=== PATIENT | male | born 1940 | race Caucasian/White ===

== ENCOUNTER 2019-06-11 01:45 | Inpatient (IN) ==
[2019-06-11] MEDS ORDERED: Morphine Sulfate 2 MG/ML SYRINGE IVP ONE (01:56)
[2019-06-11 02:26] LABS: Basophils % 0.4 %; Eosinophils % 0.2 %; Hematocrit 46.4 % (37.5-50.1); Immature Granulocytes % 0.4 % (0-4); Lymphocytes # 2.2 K/mcL (0.6-4.6); Mean Corpuscular HGB Conc 32.3 g/dL (31.6-35.5); Mean Corpuscular Volume 89.6 fL (83.0-100.0); Monocytes # 0.6 K/mcL (0.0-1.3); Monocytes % 4.9 %; Neutrophils # 8.3 K/mcL (1.6-8.9); Platelet Count 150 K/mcL (140-400); Red Blood Count 5.18 M/mcL (4.19-5.50); Red Cell Distribution Width 13.1 % (11.5-14.5); Segmented Neutrophils % 74.1 %; White Blood Count 11.2 K/mcL (4.3-11.1)
[2019-06-11 02:27] LABS: Prothrombin Time 11.1 Seconds (9.4-12.1)
[2019-06-11 02:29] LABS: Activated Partial Thrombo Time 26.5 Seconds (26.0-36.0)
[2019-06-11 02:37] LABS: Alanine Aminotransferase 14 Units/L (7-52); Albumin 4.7 g/dL (3.5-5.7); Alkaline Phosphatase 79 Units/L (34-104); Aspartate Amino Transferase 22 Units/L (13-39); BUN/Creatinine Ratio 19 (6-26); Bilirubin,Direct 0.1 mg/dL (0.0-0.2); Bilirubin,Indirect 0.6 mg/dL (0.0-1.0); Bilirubin,Total 0.7 mg/dL (0.3-1.0); Blood Urea Nitrogen 24 mg/dL (8-23); Calcium 10.1 mg/dL (8.6-10.3); Carbon Dioxide 27 mEq/L (23-29); Chloride 102 mEq/L (98-107); Globulin 2.3 g/dL (2.4-3.5); Glucose 195 mg/dL (70-105); Lipase 62 Units/L (11-82); Osmolality,Calculated 297 (280-300); Potassium 5.2 mEq/L (3.5-5.1); Sodium 139 mEq/L (136-145); Troponin I < 0.03 ng/mL (< 0.04); eGFR For African Americans > 60 (> 60); eGFR For Non-African Americans 56 (> 60)
[2019-06-11] MEDS ORDERED: Ondansetron 4 MG/2 ML VIAL IVP ONE (03:09)
[2019-06-11] MEDS ORDERED: 0.9 % Sodium Chloride 1,000 ML IVC ONE (03:10)
[2019-06-11 03:20] LABS: Bilirubin,Urine Negative (Negative); Blood,Urine Negative (Negative); Clarity,Urine Clear (Clear); Color,Urine Yellow (Yellow); Glucose,Urine (UA) Normal (Normal); Ketones,Urine Trace mg/dL (Negative); Leukocyte Esterase,Urine Negative (Negative); Nitrite,Urine Negative (Negative); Protein,Urine Trace mg/dL (Neg-Trace); Specific Gravity,Urine 1.027 (1.010-1.025); Urobilinogen,Urine Normal (Normal)
[2019-06-11] MEDS: 0.9 % Sodium Chloride 1,000 ML IVC SCH ×3 (06:34→23:02)
[2019-06-11] MEDS ORDERED: Naloxone 0.4 MG/ML INJ IVP PRN (07:00)
[2019-06-11] MEDS ORDERED: Ondansetron 4 MG/2 ML VIAL IVP PRN (07:00)
[2019-06-11] MEDS ORDERED: D5% in Water 1,000 ML IVC PRN (07:01)
[2019-06-11] MEDS ORDERED: *HR* Dextrose 50 % in Water (Syg) 50 ML SYRINGE IVP PRN (07:01)
[2019-06-11] MEDS ORDERED: Dextrose Gel 15 GM/37.5 ML TUBE PO PRN ×2 (07:01)
[2019-06-11] MEDS ORDERED: Morphine Sulfate 2 MG/ML SYRINGE IVP PRN (07:39)
[2019-06-11] MEDS ORDERED: *HR* Metoprolol 5 MG/5 ML VIAL IVP PRN (07:39)
[2019-06-11] MEDS ORDERED: *HR* Promethazine 25 MG/ML VIAL IVP PRN (09:27)
[2019-06-11] MEDS: Insulin LISPRO 300 UNITS/3 ML VIAL SQ SCH ×2 (11:54→17:16)
[2019-06-11] MEDS: *HR* Heparin 5,000 UNIT/ML VIAL SQ SCH ×2 (13:17→20:29)
[2019-06-12] MEDS: Insulin LISPRO 300 UNITS/3 ML VIAL SQ SCH ×4 (00:30→17:17)
[2019-06-12 02:07] LABS: Basophils % 0.2 %; Eosinophils # 0.1 K/mcL (0.0-0.6); Eosinophils % 0.7 %; Hematocrit 40.1 % (37.5-50.1); Hemoglobin 12.7 g/dL (12.9-16.9); Immature Granulocytes % 0.3 % (0-4); Immature Platelets 3.2 % (1.1-6.1); Lymphocytes # 2.6 K/mcL (0.6-4.6); Lymphocytes % 29.2 %; Mean Corpuscular HGB Conc 31.7 g/dL (31.6-35.5); Mean Corpuscular Hemoglobin 28.8 pg (28.0-33.3); Mean Corpuscular Volume 90.9 fL (83.0-100.0); Monocytes # 0.8 K/mcL (0.0-1.3); Monocytes % 8.6 %; Neutrophils # 5.4 K/mcL (1.6-8.9); Platelet Count 138 K/mcL (140-400); Red Blood Count 4.41 M/mcL (4.19-5.50); Red Cell Distribution Width 13.2 % (11.5-14.5); White Blood Count 8.8 K/mcL (4.3-11.1)
[2019-06-12 02:24] LABS: BUN/Creatinine Ratio 21 (6-26); Blood Urea Nitrogen 24 mg/dL (8-23); Calcium 8.2 mg/dL (8.6-10.3); Carbon Dioxide 27 mEq/L (23-29); Chloride 109 mEq/L (98-107); Glucose 107 mg/dL (70-105); Osmolality,Calculated 297 (280-300); Potassium 4.2 mEq/L (3.5-5.1); Sodium 141 mEq/L (136-145); eGFR For African Americans > 60 (> 60); eGFR For Non-African Americans > 60 (> 60)
[2019-06-12] MEDS: *HR* Heparin 5,000 UNIT/ML VIAL SQ SCH ×3 (05:05→23:50)
[2019-06-12] MEDS: 0.9 % Sodium Chloride 1,000 ML IVC SCH ×3 (06:45→17:16)
[2019-06-12 07:05] LABS: Estimated Average Glucose 131 mg/dl
[2019-06-12] MEDS ORDERED: *HR* FentaNYL (PF) 100 MCG/2 ML VIAL ONE (10:48)
[2019-06-12] MEDS ORDERED: Dexamethasone 4 MG/ML VIAL ONE (10:50)
[2019-06-12] MEDS ORDERED: Ondansetron 4 MG/2 ML VIAL ONE (10:50)
[2019-06-12] MEDS ORDERED: Lidocaine -MPF 2% 2 ML VIAL ONE (10:50)
[2019-06-12] MEDS ORDERED: *HR* Propofol 200 MG/20 ML VIAL IVP ONE (10:50)
[2019-06-12] MEDS ORDERED: *HR* Rocuronium Bromide 50 MG/5 ML VIAL ONE (10:50)
[2019-06-12] MEDS ORDERED: Lidocaine -MPF 4% 5 ML AMPUL ONE (10:53)
[2019-06-12] MEDS ORDERED: Ondansetron 4 MG/2 ML VIAL IVP ONE (12:13)
[2019-06-12] MEDS ORDERED: *HR* HYDROmorphone PF 0.5 MG/0.5 ML SYRINGE IVP PRN (12:13)
[2019-06-12] MEDS ORDERED: *HR* OxyCODONE Immed Rel 5 MG TABLET PO PRN (12:13)
[2019-06-12] MEDS ORDERED: *HR* Succinylcholine 200 MG/10 ML VIAL IVP ONE ×2 (12:54→13:44)
[2019-06-12] MEDS ORDERED: *HR* Vasopressin 20 UNIT/ML VIAL ONE (12:55)
[2019-06-12] MEDS ORDERED: Acetaminophen IV 1,000 MG/100 ML INFUS..BTL ONE (13:11)
[2019-06-12] MEDS ORDERED: Clindamycin 900 MG/50 ML 900 MG/50 ML IV.SOLN IVPB ONE ×2 (13:19→13:20)
[2019-06-12] MEDS ORDERED: Bupivacaine/EPI 1:200k 0.5%PF 30 ML VIAL ONE (13:20)
[2019-06-12] MEDS ORDERED: *HR* PHENYLEPHRINE 1,000 MCG/10 ML SYRINGE IVP ONE (13:47)
[2019-06-12] MEDS ORDERED: *HR* HYDROMORPHONE 2 MG/ML VIAL ONE (13:53)
[2019-06-12] MEDS ORDERED: *HR* Labetalol 20 MG/4 ML SYRINGE IVP ONE (14:41)
[2019-06-12] MEDS ORDERED: Naloxone 0.4 MG/ML INJ IVP PRN (15:54)
[2019-06-12] MEDS ORDERED: D5% in Water 1,000 ML IVC PRN (15:54)
[2019-06-12] MEDS ORDERED: Vancomycin (wt based) 1,000 MG VIAL IVPB SCH (15:54)
[2019-06-12] MEDS ORDERED: Dextrose Gel 15 GM/37.5 ML TUBE PO PRN ×2 (15:54)
[2019-06-12] MEDS ORDERED: *HR* Promethazine 25 MG/ML VIAL IVP PRN (15:54)
[2019-06-12] MEDS: MetroNIDAZOLE 500 MG/100 ML 500 MG/100 ML BAG IVPB SCH (16:11)
[2019-06-12] MEDS: Morphine Sulfate 2 MG/ML SYRINGE IVP PRN (18:06)
[2019-06-12] MEDS: Acetaminophen IV 1,000 MG/100 ML INFUS..BTL IVPB SCH (19:50)
[2019-06-13] MEDS: Acetaminophen IV 1,000 MG/100 ML INFUS..BTL IVPB SCH ×4 (01:18→20:32)
[2019-06-13] MEDS: MetroNIDAZOLE 500 MG/100 ML 500 MG/100 ML BAG IVPB SCH ×2 (01:20→07:25)
[2019-06-13] MEDS: Ondansetron 4 MG/2 ML VIAL IVP PRN ×2 (01:20→23:22)
[2019-06-13] MEDS: Morphine Sulfate 2 MG/ML SYRINGE IVP PRN ×5 (01:20→23:21)
[2019-06-13 01:22] LABS: Basophils % 0.1 %; Mean Corpuscular HGB Conc 31.9 g/dL (31.6-35.5); Red Cell Distribution Width 13.2 % (11.5-14.5)
[2019-06-13 01:23] LABS: Hematocrit 38.2 % (37.5-50.1); Hemoglobin 12.2 g/dL (12.9-16.9); Immature Granulocytes % 0.4 % (0-4); Immature Platelets 2.7 % (1.1-6.1); Lymphocytes # 1.9 K/mcL (0.6-4.6); Lymphocytes % 19.8 %; Mean Corpuscular Hemoglobin 28.8 pg (28.0-33.3); Mean Corpuscular Volume 90.1 fL (83.0-100.0); Monocytes # 0.6 K/mcL (0.0-1.3); Monocytes % 5.8 %; Platelet Count 137 K/mcL (140-400); Red Blood Count 4.24 M/mcL (4.19-5.50); Segmented Neutrophils % 73.9 %; White Blood Count 9.7 K/mcL (4.3-11.1)
[2019-06-13 01:40] LABS: BUN/Creatinine Ratio 22 (6-26); Blood Urea Nitrogen 24 mg/dL (8-23); Calcium 7.9 mg/dL (8.6-10.3); Carbon Dioxide 24 mEq/L (23-29); Chloride 109 mEq/L (98-107); Glucose 156 mg/dL (70-105); Neutrophils # 7.2 K/mcL (1.6-8.9); Osmolality,Calculated 299 (280-300); Sodium 141 mEq/L (136-145); eGFR For African Americans > 60 (> 60); eGFR For Non-African Americans > 60 (> 60)
[2019-06-13 01:41] LABS: Platelet Estimate Normal (Normal)
[2019-06-13] MEDS: *HR* Heparin 5,000 UNIT/ML VIAL SQ SCH ×3 (06:18→23:20)
[2019-06-13] MEDS: 0.9 % Sodium Chloride 1,000 ML IVC SCH ×2 (06:19→16:32)
[2019-06-13] MEDS: Insulin LISPRO 300 UNITS/3 ML VIAL SQ SCH ×4 (06:51→17:28)
[2019-06-13] MEDS: Pantoprazole 40 MG VIAL IVP SCH (09:10)
[2019-06-14] MEDS: Insulin LISPRO 300 UNITS/3 ML VIAL SQ SCH ×4 (01:00→17:10)
[2019-06-14] MEDS: 0.9 % Sodium Chloride 1,000 ML IVC SCH ×3 (01:05→17:46)
[2019-06-14] MEDS: Acetaminophen IV 1,000 MG/100 ML INFUS..BTL IVPB SCH ×3 (04:35→20:21)
[2019-06-14] MEDS: *HR* Heparin 5,000 UNIT/ML VIAL SQ SCH ×3 (05:31→21:37)
[2019-06-14 08:08] LABS: Basophils # 0.1 K/mcL (0.0-0.2); Basophils % 0.5 %; Eosinophils # 0.1 K/mcL (0.0-0.6); Eosinophils % 0.5 %; Hematocrit 34.8 % (37.5-50.1); Immature Granulocytes % 0.6 % (0-4); Lymphocytes # 2.5 K/mcL (0.6-4.6); Lymphocytes % 25.7 %; Mean Corpuscular HGB Conc 31.6 g/dL (31.6-35.5); Mean Corpuscular Hemoglobin 28.7 pg (28.0-33.3); Mean Corpuscular Volume 90.9 fL (83.0-100.0); Mean Platelet Volume 10.1 fL (9.4-12.4); Monocytes # 0.6 K/mcL (0.0-1.3); Monocytes % 6.3 %; Neutrophils # 6.4 K/mcL (1.6-8.9); Platelet Count 128 K/mcL (140-400); Red Blood Count 3.83 M/mcL (4.19-5.50); Red Cell Distribution Width 13.1 % (11.5-14.5); Segmented Neutrophils % 66.4 %; White Blood Count 9.6 K/mcL (4.3-11.1)
[2019-06-14] MEDS: Pantoprazole 40 MG VIAL IVP SCH (08:16)
[2019-06-14 08:20] LABS: BUN/Creatinine Ratio 23 (6-26); Blood Urea Nitrogen 25 mg/dL (8-23); Calcium 7.7 mg/dL (8.6-10.3); Carbon Dioxide 23 mEq/L (23-29); Chloride 111 mEq/L (98-107); Glucose 77 mg/dL (70-105); Magnesium 2.2 mg/dL (1.6-2.6); Osmolality,Calculated 297 (280-300); Phosphorous 1.5 mg/dL (2.7-4.5); Potassium 3.9 mEq/L (3.5-5.1); Sodium 142 mEq/L (136-145); eGFR For African Americans > 60 (> 60); eGFR For Non-African Americans > 60 (> 60)
[2019-06-14] MEDS ORDERED: Potassium Phosphate 44 MEQ in 0.9 % Sodium Chloride 250 ML IVPB ONE (10:21)
[2019-06-14] MEDS: Finasteride 5 MG TABLET PO SCH (11:04)
[2019-06-14] MEDS: lisinopriL 10 MG TABLET PO SCH (11:04)
[2019-06-14] MEDS: Aspirin 81 MG TAB.CHEW PO SCH (11:04)
[2019-06-14] MEDS: *HR* Dextrose 50 % in Water (Syg) 50 ML SYRINGE IVP PRN ×2 (11:19→17:07)
[2019-06-15] MEDS: Insulin LISPRO 300 UNITS/3 ML VIAL SQ SCH ×4 (02:19→17:51)
[2019-06-15] MEDS: Acetaminophen IV 1,000 MG/100 ML INFUS..BTL IVPB SCH ×2 (03:55→13:05)
[2019-06-15] MEDS: *HR* Metoprolol 5 MG/5 ML VIAL IVP PRN ×2 (03:56→20:52)
[2019-06-15] MEDS: 0.9 % Sodium Chloride 1,000 ML IVC SCH ×2 (04:00→09:58)
[2019-06-15 05:14] LABS: Basophils % 0.3 %; Eosinophils # 0.1 K/mcL (0.0-0.6); Eosinophils % 0.8 %; Hematocrit 34.1 % (37.5-50.1); Hemoglobin 11.1 g/dL (12.9-16.9); Lymphocytes # 2.1 K/mcL (0.6-4.6); Lymphocytes % 24.1 %; Mean Corpuscular HGB Conc 32.6 g/dL (31.6-35.5); Mean Corpuscular Hemoglobin 29.6 pg (28.0-33.3); Mean Corpuscular Volume 90.9 fL (83.0-100.0); Mean Platelet Volume 9.8 fL (9.4-12.4); Monocytes # 0.6 K/mcL (0.0-1.3); Monocytes % 6.5 %; Neutrophils # 5.9 K/mcL (1.6-8.9); Platelet Count 135 K/mcL (140-400); Red Blood Count 3.75 M/mcL (4.19-5.50); Red Cell Distribution Width 13.1 % (11.5-14.5); Segmented Neutrophils % 67.3 %; White Blood Count 8.7 K/mcL (4.3-11.1)
[2019-06-15 05:34] LABS: BUN/Creatinine Ratio 21 (6-26); Blood Urea Nitrogen 21 mg/dL (8-23); Calcium 7.8 mg/dL (8.6-10.3); Carbon Dioxide 22 mEq/L (23-29); Chloride 112 mEq/L (98-107); Glucose 76 mg/dL (70-105); Osmolality,Calculated 296 (280-300); Potassium 3.9 mEq/L (3.5-5.1); Sodium 142 mEq/L (136-145); eGFR For African Americans > 60 (> 60); eGFR For Non-African Americans > 60 (> 60)
[2019-06-15] MEDS: *HR* Heparin 5,000 UNIT/ML VIAL SQ SCH ×3 (06:30→20:53)
[2019-06-15] MEDS: Finasteride 5 MG TABLET PO SCH (08:41)
[2019-06-15] MEDS: lisinopriL 10 MG TABLET PO SCH (08:41)
[2019-06-15] MEDS: Aspirin 81 MG TAB.CHEW PO SCH (08:41)
[2019-06-15] MEDS: Pantoprazole 40 MG VIAL IVP SCH (08:42)
[2019-06-15] MEDS ORDERED: Acetaminophen 325 MG TABLET PO PRN (14:57)
[2019-06-15] MEDS ORDERED: Morphine Sulfate 2 MG/ML SYRINGE IVP PRN (14:58)
[2019-06-15] MEDS: Ringers Solution, Lactated 1,000 ML IVC SCH (15:38)
[2019-06-16] MEDS: Insulin LISPRO 300 UNITS/3 ML VIAL SQ SCH ×3 (00:47→11:44)
[2019-06-16] MEDS: Ringers Solution, Lactated 1,000 ML IVC SCH (04:16)
[2019-06-16] MEDS: *HR* Heparin 5,000 UNIT/ML VIAL SQ SCH ×3 (05:22→21:15)
[2019-06-16 06:04] LABS: BUN/Creatinine Ratio 22 (6-26); Blood Urea Nitrogen 20 mg/dL (8-23); Carbon Dioxide 19 mEq/L (23-29); Chloride 111 mEq/L (98-107); Glucose 76 mg/dL (70-105); Osmolality,Calculated 295 (280-300); Potassium 3.6 mEq/L (3.5-5.1); Sodium 142 mEq/L (136-145); eGFR For African Americans > 60 (> 60); eGFR For Non-African Americans > 60 (> 60)
[2019-06-16 06:06] LABS: Magnesium 2.2 mg/dL (1.6-2.6); Phosphorous 1.9 mg/dL (2.7-4.5)
[2019-06-16] MEDS: Finasteride 5 MG TABLET PO SCH (08:12)
[2019-06-16] MEDS: lisinopriL 10 MG TABLET PO SCH (08:12)
[2019-06-16] MEDS: Aspirin 81 MG TAB.CHEW PO SCH (08:12)
[2019-06-16] MEDS ORDERED: Potassium Phosphate 44 MEQ in 0.9 % Sodium Chloride 250 ML IVPB ONE (08:18)
[2019-06-16] MEDS: Pantoprazole 40 MG VIAL IVP SCH (08:20)
[2019-06-16] MEDS: *HR* OxyCODONE Immed Rel 5 MG TABLET PO PRN (16:15)
[2019-06-17] MEDS: *HR* Heparin 5,000 UNIT/ML VIAL SQ SCH ×3 (05:09→21:04)
[2019-06-17] MEDS: Aspirin 81 MG TAB.CHEW PO SCH ×2 (08:26→08:35)
[2019-06-17] MEDS: lisinopriL 10 MG TABLET PO SCH ×2 (08:27→08:35)
[2019-06-17] MEDS: Finasteride 5 MG TABLET PO SCH ×2 (08:27→08:34)
[2019-06-17] MEDS ORDERED: Metoclopramide 10 MG/2 ML VIAL IVP ONE (10:28)
[2019-06-17] MEDS: polyethylene glycoL 3350 17 GM POWD.PACK PO SCH (11:39)
[2019-06-17] MEDS: *HR* OxyCODONE Immed Rel 5 MG TABLET PO PRN (11:45)
[2019-06-18] MEDS: *HR* Heparin 5,000 UNIT/ML VIAL SQ SCH (05:10)
[2019-06-18 07:19] VITALS: BP 157/80
[2019-06-18] MEDS: Aspirin 81 MG TAB.CHEW PO SCH (08:16)
[2019-06-18] MEDS: Finasteride 5 MG TABLET PO SCH (08:16)
[2019-06-18] MEDS: lisinopriL 10 MG TABLET PO SCH (08:17)
[2019-06-18] MEDS: polyethylene glycoL 3350 17 GM POWD.PACK PO SCH (08:17)
== END 2019-06-18 10:46 | disposition home or self-care (01) | DRG 331 ==
LOC: EMEROOARM 01:45 → 3ANU 01:45 → SUATTDRO 05:53 → 3ANU 06:46 → SUATTDRO 14:44
PROVIDERS: ADMIT Student in an Organized Health Care Education/Training Program; ATTEND Internal Medicine

== ENCOUNTER 2019-08-11 10:29 | Inpatient (IN) ==
[2019-08-11] MEDS ORDERED: MetroNIDAZOLE 500 MG/100 ML 500 MG/100 ML BAG IVPB ONE (10:49)
[2019-08-11] MEDS ORDERED: Ondansetron 4 MG/2 ML VIAL ONE (10:52)
[2019-08-11] MEDS ORDERED: *HR* Rocuronium Bromide 50 MG/5 ML VIAL ONE ×2 (10:52→13:54)
[2019-08-11] MEDS ORDERED: Lidocaine -MPF 2% 2 ML VIAL ONE (10:52)
[2019-08-11] MEDS ORDERED: Dexamethasone 4 MG/ML VIAL ONE ×3 (10:52→12:44)
[2019-08-11] MEDS ORDERED: *HR* FentaNYL (PF) 100 MCG/2 ML VIAL ONE (10:53)
[2019-08-11] MEDS ORDERED: *HR* HYDROMORPHONE 2 MG/ML VIAL ONE (10:53)
[2019-08-11] MEDS ORDERED: Ringers Solution, Lactated 1,000 ML IVC SCH (11:00)
[2019-08-11] MEDS ORDERED: Pregabalin 50 MG CAPSULE PO ONE (11:46)
[2019-08-11] MEDS ORDERED: Dexamethasone 10 MG/ML VIAL IVP ONE (11:46)
[2019-08-11] MEDS ORDERED: *HR* HYDROmorphone PF 0.5 MG/0.5 ML SYRINGE IVP PRN (12:02)
[2019-08-11] MEDS ORDERED: *HR* FentaNYL (PF) 100 MCG/2 ML VIAL IVP PRN (12:02)
[2019-08-11] MEDS ORDERED: Ondansetron 4 MG/2 ML VIAL IVP ONE (12:02)
[2019-08-11] MEDS ORDERED: Bupivacaine/EPI 1:200k 0.5%PF 10 ML VIAL ONE (12:38)
[2019-08-11] MEDS ORDERED: Ketorolac 30 MG/ML VIAL ONE (13:14)
[2019-08-11] MEDS ORDERED: *HR* Labetalol 20 MG/4 ML SYRINGE IVP ONE (13:20)
[2019-08-11] MEDS ORDERED: Lidocaine -MPF 4% 5 ML AMPUL ONE (13:44)
[2019-08-11] MEDS ORDERED: *HR* OxyCODONE Immed Rel 5 MG TABLET PO PRN (16:30)
[2019-08-11] MEDS ORDERED: Morphine Sulfate Oral CONC 10 MG/0.5 ML ORAL.SYG SL PRN (16:30)
[2019-08-11] MEDS ORDERED: Ondansetron 4 MG/2 ML VIAL IVP PRN (16:30)
[2019-08-11] MEDS: 0.9 % Sodium Chloride 1,000 ML IVC SCH (17:26)
[2019-08-11] MEDS: *HR* Heparin 5,000 UNIT/ML VIAL SQ SCH (17:26)
[2019-08-11] MEDS: Acetaminophen IV 1,000 MG/100 ML INFUS..BTL IVPB SCH ×2 (18:22→23:03)
[2019-08-12] MEDS: *HR* Heparin 5,000 UNIT/ML VIAL SQ SCH ×2 (05:04→17:56)
[2019-08-12] MEDS: 0.9 % Sodium Chloride 1,000 ML IVC SCH ×2 (05:05→17:56)
[2019-08-12] MEDS: Acetaminophen IV 1,000 MG/100 ML INFUS..BTL IVPB SCH ×4 (05:59→23:37)
[2019-08-12 08:04] LABS: Basophils % 0.1 %; Eosinophils % 0.1 %; Hematocrit 33.1 % (37.5-50.1); Hemoglobin 10.8 g/dL (12.9-16.9); Immature Granulocytes % 0.2 % (0-4); Lymphocytes # 1.5 K/mcL (0.6-4.6); Lymphocytes % 17.6 %; Mean Corpuscular HGB Conc 32.6 g/dL (31.6-35.5); Mean Platelet Volume 10.1 fL (9.4-12.4); Monocytes # 0.6 K/mcL (0.0-1.3); Monocytes % 6.9 %; Neutrophils # 6.3 K/mcL (1.6-8.9); Platelet Count 143 K/mcL (140-400); Red Blood Count 3.72 M/mcL (4.19-5.50); Red Cell Distribution Width 13.8 % (11.5-14.5); Segmented Neutrophils % 75.1 %; White Blood Count 8.4 K/mcL (4.3-11.1)
[2019-08-12] MEDS: lisinopriL 10 MG TABLET PO SCH (08:27)
[2019-08-12 09:03] LABS: BUN/Creatinine Ratio 23 (6-26); Blood Urea Nitrogen 28 mg/dL (8-23); Calcium 8.3 mg/dL (8.6-10.3); Carbon Dioxide 21 mEq/L (23-29); Chloride 106 mEq/L (98-107); Glucose 116 mg/dL (70-105); Osmolality,Calculated 288 (280-300); Potassium 4.4 mEq/L (3.5-5.1); Sodium 136 mEq/L (136-145); eGFR For African Americans > 60 (> 60); eGFR For Non-African Americans 57 (> 60)
[2019-08-13] MEDS: Acetaminophen IV 1,000 MG/100 ML INFUS..BTL IVPB SCH (06:08)
[2019-08-13] MEDS: 0.9 % Sodium Chloride 1,000 ML IVC SCH (06:12)
[2019-08-13] MEDS: *HR* Heparin 5,000 UNIT/ML VIAL SQ SCH ×2 (06:13→17:20)
[2019-08-13] MEDS: lisinopriL 10 MG TABLET PO SCH (09:38)
[2019-08-13] MEDS ORDERED: *HR* OxyCODONE/APAP 5/325 TABLET PO PRN (10:33)
[2019-08-13 11:06] LABS: Basophils % 0.4 %; Eosinophils # 0.2 K/mcL (0.0-0.6); Eosinophils % 3.1 %; Hematocrit 34.6 % (37.5-50.1); Hemoglobin 10.7 g/dL (12.9-16.9); Immature Granulocytes % 0.3 % (0-4); Lymphocytes # 1.9 K/mcL (0.6-4.6); Lymphocytes % 28.2 %; Mean Corpuscular HGB Conc 30.9 g/dL (31.6-35.5); Mean Corpuscular Hemoglobin 28.7 pg (28.0-33.3); Mean Corpuscular Volume 92.8 fL (83.0-100.0); Mean Platelet Volume 10.2 fL (9.4-12.4); Monocytes # 0.4 K/mcL (0.0-1.3); Monocytes % 6.3 %; Neutrophils # 4.2 K/mcL (1.6-8.9); Platelet Count 120 K/mcL (140-400); Red Blood Count 3.73 M/mcL (4.19-5.50); Red Cell Distribution Width 13.9 % (11.5-14.5); Segmented Neutrophils % 61.7 %; White Blood Count 6.9 K/mcL (4.3-11.1)
[2019-08-13 11:15] LABS: BUN/Creatinine Ratio 19 (6-26); Blood Urea Nitrogen 21 mg/dL (8-23); Carbon Dioxide 26 mEq/L (23-29); Chloride 108 mEq/L (98-107); Glucose 91 mg/dL (70-105); Osmolality,Calculated 291 (280-300); Potassium 4.1 mEq/L (3.5-5.1); Sodium 139 mEq/L (136-145); eGFR For African Americans > 60 (> 60); eGFR For Non-African Americans > 60 (> 60)
[2019-08-13 17:37] VITALS: BP 150/72
== END 2019-08-13 18:23 | disposition home or self-care (01) | DRG 330 ==
LOC: SAMDAY 10:29 → 3BNU 16:28
PROVIDERS: ADMIT Surgery; ATTEND Surgery